=== PATIENT | female | born 1950 | race Hispanic/Latino ===

== ENCOUNTER 2017-08-26 05:59 | Day surgery (SDC) | payer MEDICARE ==
[2017-08-26] MEDS ORDERED: VERSED IV NR (06:00)
[2017-08-26] MEDS ORDERED: SUBLIMAZE IV ONE (06:00)
[2017-08-26] MEDS ORDERED: ANCEF/STERILE WATER 2 GM/20 ML IV NR (06:00)
[2017-08-26] MEDS ORDERED: PEPCID PO NR (06:00)
[2017-08-26] MEDS ORDERED: ADRENALIN ONE ×2 (06:58→07:09)
[2017-08-26] MEDS ORDERED: XYLOCAINE 1% 20 mL ONE (07:02)
[2017-08-26] MEDS ORDERED: DECADRON ONE (07:02)
[2017-08-26] MEDS ORDERED: MARCAINE-EPI/PF 0.5%-1:200,000 INFILTRATI ONE ×2 (07:02→07:03)
--- NOTE | 2017-08-26 07:19 | Anesthesia Consultation ---
Anesthesia Consult and Med Hx Date of service: 08/26/17 - Airway Anesthetic Teeth Evaluation: Dentures ROM Head & Neck: Adequate Mental/Hyoid Distance: Adequate Mallampati Class: Class II Intubation Access Assessment: Probably Good - Pulmonary Exam CTA: Yes - Cardiac Exam Cardiac Exam: RRR - Pre-Operative Health Status ASA Pre-Surgery Classification: ASA2 Proposed Anesthetic Plan: General Nerve Block: IS - Pulmonary Hx Smoking: No Hx Pneumonia: Yes (06/2017 , CXR NOW CLEAR) Hx Sleep Apnea: No ([facility] PRE SCREEN HIGH RISK) - Cardiovascular System Hx Hypertension: Yes (X 10 YRS) Hx Heart Murmur: Yes (CAUSES NO PROBLEMS) - Endocrine Hx Hypothyroidism: Yes (ON MEDS) - Hematic Hx Anemia: Yes - Other Systems Hx Cancer: No
--- NOTE | 2017-08-26 07:19 | Anesthesia Day of Surgery ---
Anesthesia Day of Surgery - Day of Surgery Patient Examined: Yes Patient H&P Reviewed: Yes Patient is NPO: Yes Beta Blockers: Yes
[2017-08-26] MEDS: NACL 0.9% 1000 ML 1,000 ML IV SCH ×2 (07:20→10:50)
[2017-08-26] MEDS ORDERED: XYLOCAINE MPF 2% ONE (07:21)
[2017-08-26] MEDS ORDERED: DIPRIVAN 10 MG/ML IV ONE (07:21)
[2017-08-26] MEDS ORDERED: SUBLIMAZE ONE (07:21)
[2017-08-26] MEDS ORDERED: QUELICIN ONE (07:21)
[2017-08-26] MEDS ORDERED: NEO SYNEPHRINE/NS Syringe(OR USE) IV ONE (08:00)
[2017-08-26] MEDS ORDERED: ADRENALIN IV ONE (08:28)
[2017-08-26] MEDS ORDERED: NACL 0.9% IR ONE ×2 (08:28)
[2017-08-26] MEDS ORDERED: ePHEDrine SULFATE ONE (08:31)
[2017-08-26] MEDS ORDERED: NACL 0.9% 1000 ML 1,000 ML ONE (09:30)
--- NOTE | 2017-08-26 09:36 | Short Stay Summary ---
Short Stay Documentation Date of service: 08/26/17 - History H&P: obtained from office - Allergies and Medications Current Medications: Allergies No Known Allergies Allergy (Verified 08/22/17 10:13) Home Medications Medication Instructions Recorded Confirmed Last Taken Type Bisoprolol/Hctz [Ziac 2.5-6.25] 1 each PO DAILY 08/22/17 08/26/17 08/26/17 04: 30 History Calcium Carbonate [Calcium] 1,200 mg PO DAILY 08/22/17 08/26/17 08/25/17 09:00 History Cyanocobalamin [Vitamin B-12] 1,000 mcg IM [id number] 08/22/17 08/26/17 08/19/17 09:00 History Doxazosin [Cardura] 4 mg PO QDAY 08/22/17 08/26/17 08/26/17 04:30 History Ergocalciferol [Vitamin D2] 50,000 unit PO QWEEK 08/22/17 08/26/17 08/19/17 09: 00 History FLUoxetine HCL [PROzac] 40 mg PO QDAY 08/22/17 08/26/17 08/25/17 09:00 History Ferrous Sulfate [Feosol] 325 mg PO BID 08/22/17 08/26/17 08/19/17 09:00 History Gabapentin [Neurontin] 600 mg PO BID 08/22/17 08/26/17 08/25/17 21:00 History Levothyroxine Sodium 137 mcg PO QAM 08/22/17 08/26/17 08/25/17 21:00 History [Levothyroxine] Multivit-Min/FA/Lycopen/Lutein 1 each PO DAILY 08/22/17 08/26/17 08/19/17 09:00 History [Centrum Silver Tablet] Active Medications Cefazolin Sodium (Ancef/Sterile Water 2 Gm/20 Ml) 2 gm IV PREOP NR Stop: 08/26/17 21:00 Famotidine (Pepcid) 20 mg PO PREOP NR Stop: 08/26/17 15:00 Last Admin: 08/26/17 07:00 Dose: 20 mg Sodium Chloride (Nacl 0.9% 1000 Ml) 1,000 mls @ 75 mls/hr IV DIRECT KATHLEEN Last Admin: 08/26/17 07:20 Dose: 75 mls/hr Midazolam HCl (Versed) 2 mg IV PREOP NR Stop: 08/26/17 23:59 Last Admin: 08/26/17 07:26 Dose: 2 mg - Brief post op/procedure progress note Date of procedure: 08/26/17 Pre-op diagnosis: persistent left shoulder pain, AC joint arthritis, rotator cuff tear Post-op diagnosis: other (left shoulder AC joint arthritis, partial rotator cuff tear, adhesive capsulitis, extensive subacromial bursitis) Procedure: left shoulder arthroscopy subacromial decompression, distal clavicle excision, debriedment of extensive subacromial bursitis, debriedment of partial rotator cuff tear, lysis of adhesions, manipulation under anesthesia, Anesthesia: GETA Findings: as above Surgeon: LUIS MIGUEL ROJAS Employee Relation Manager: JOSEPH FONG III Estimated blood loss: minimal Pathology: none Specimen disposition: to lab Condition: stable - Hospital course Hospital course: no periopeartive complications - Disposition Condition at discharge: Good Disposition: DC-01 TO HOME OR SELFCARE Short Stay Discharge Plan Follow up with: PRIMARY CARE, [Primary Care Provider] - 7 Days
--- NOTE | 2017-08-26 10:23 | Post Anesthesia Evaluation ---
- Post Anesthesia Evaluation Patient Participated: Yes Airway Patent: Yes Stable Respiratory Function: Yes Nausea/Vomiting: No Temp > 96.8F: Yes Pain Manageable: Yes Adequeate Hydration: Yes Anesthesia Complications: No Block Receding Appropriately: Not Applicable Patient on Ventilator: No
--- NOTE | 2017-08-26 11:15 | Operative Report ---
PREOPERATIVE DIAGNOSES: Persistent left shoulder pain, acromioclavicular joint arthritis, rotator cuff tear. POSTOPERATIVE DIAGNOSES: Persistent left shoulder pain, advanced acromioclavicular joint arthritic change with type 2 acromion with inferior spurs at distal clavicle and acromion causing severe impingement upon the rotator cuff. Extensive subacromial bursitis as well as adhesions, extensive intra-articular adhesions, partial thickness articular-sided rotator cuff tear involving less than 40% of the width of the supraspinatus tendon. Diffuse intra-articular inflammation with marked loss of range of motion/adhesive capsulitis. OPERATIVE PROCEDURE: Left shoulder arthroscopy, subacromial decompression, distal clavicle excision, lysis of adhesions, manipulation under anesthesia, debridement of extensive subacromial bursitis, debridement of partial thickness rotator cuff tear. SURGEON: Rony Lima MD METALLURGIST PROCESS: Oz Ayala III, MD. ANESTHESIA: General plus interscalene block to the operative left upper extremity. PREOPERATIVE ANTIBIOTICS: Ancef 2 grams IV within 1 hour of skin incision. DVT PROPHYLAXIS: Open toe, thigh high compression stockings and SCD pumps to bilateral lower extremities. OPERATIVE COMPLICATIONS: None. INDICATIONS: The patient is a 67-year-old female who has had persistent progressively worsening left shoulder pain with loss of range of motion with marked severe limitation of her normal activities of daily living. The patient failed to improve despite extensive nonoperative treatment. There is marked limitation of her normal activities of daily living. MRI scan was performed which was positive for acromioclavicular joint arthritic changes as well as a rotator cuff tear. The patient's MRI findings and diagnosis were discussed at length, after making sure the patient understood her diagnosis and all of her questions were answered, we then discussed treatment alternatives of surgical and nonsurgical including risks and benefits of both. After a long lengthy discussion, the patient opted to proceed with operative intervention. This will entail a left shoulder arthroscopy, subacromial decompression, distal clavicle excision, rotator cuff repair and surgery as indicated. The risk of which were discussed to include but not exclusive of infection, blood loss, nerve damage, loss of range of motion and persistent pain. Again, the patient understood, all of her questions were answered and she wished to proceed with operative intervention. OPERATIVE PROCEDURE: The patient was in seen the proper holding room area at which point informed consent was reviewed and appropriate left upper extremity was identified and then marked. Anesthesia then performed an interscalene block in the left lower extremity. After confirmation of adequate analgesia of the left upper extremity, the patient was then brought back to the operating room and placed supine on the standard operating room table with beachchair positioner already in place. At this juncture, general anesthesia was administered and an LMA tube was inserted. After confirmation of adequate general anesthesia, checking proper placement of LMA tube, we then made sure that all bony prominences were well padded. There were no wrinkles in the compression stockings on bilateral lower extremities and SCD pumps were applied to bilateral lower extremities. A pillow was placed beneath the posterior aspect of bilateral thighs, placed in slight flexion at the hips and knees making sure the popliteal fossa was free and clear. The patient was then sat in a beach chair position using the beach chair positioner, which was already in place and her head was secured in a nice neutral position. The well right arm was secured in neutral position at the patient's side with aid of the well-arm mayfield. The left upper extremity was then examined under anesthesia. The patient was seen to have marked loss of range of motion with forward flexion only to 140, abduction to 90, external rotation to 40 degrees, internal rotation of 40 degrees with no evidence of instability. Following examination under anesthesia, the left upper extremity was then prepped and draped in the usual sterile fashion. After prepping and draping, a timeout was called and the appropriate left upper extremity was identified which again had been marked in appropriate holding area. I began procedure by first making a standard posterior portal with #15 blade. Once the port was established, the cannula with a blunt trocar was inserted into the intra-articular aspect of the glenohumeral joint. This went without difficulty or damage to articular cartilage. Once in place, the arthroscopic camera placed in the anterior aspect of the shoulder. I established anterior portal by first inserting into 18 gauge spinal needle between subscap and biceps tendons under direct arthroscopic visualization, once confirmed to be in appropriate position, a 15 blade was then used to establish an anterior portal. Once the portal established, blunt trocar inserted via portal site. Following arthroscopic probe, began diagnostic arthroscopy in the anterior aspect of the shoulder joint where the patient was seen to have marked extensive adhesions throughout the intraarticular aspect of the shoulder joint. There was marked degenerative wear of the anterior and superior labrum. This was gently debrided using 4.0 meniscal shaver down to a nice smooth stable healthy remaining tissue. The remaining anterior superior labrum was probed and seen to be stable. The posterior labrum was seen to be intact and stable when probed. The biceps tendon was seen to be intact. Next, the shoulder in its normal relation. There was normal articular cartilage of the glenohumeral joint. There were no loose bodies in the axillary recess, although there were copious amounts of adhesions. The adhesions were gently debrided using 4.0 meniscal shaver and once completed, we were then able to visualize the subscapularis tendon which was seen to be intact and stable when probed as well as the middle glenohumeral ligament, which was seen to be stable and intact when probed. The rotator cuff showed there to be partial thickness tear of the supraspinatus tendon encompassing approximately 40% of width of the tendon. This was gently debrided using 4.0 meniscal shaver. Hemostasis was achieved with the Arthrocare ablation wand. Once completed, the arthroscopic pump was turned off to make sure there was good hemostasis. Once this was confirmed, a straight full suction of the glenohumeral joint using arthroscopic cannula. Following this, all arthroscopic instrumentation was removed from the glenohumeral joint and placed in the subacromial space. Once in the subacromial space, we saw there was severe extensive subacromial bursitis and adhesions. A third incision was made in the lateral aspect shoulder in line with distal clavicle away from the axillary nerve. Through this portal, we debrided the extensive subacromial bursitis and the diffuse adhesions. Using a 4.0 meniscal shaver, hemostasis was achieved with the Arthrocare ablation wand. Once completed, the arm was placed in full range of motion and saw there was severe impingement of the rotator cuff on undersurface of the acromion and distal clavicle. One could see in the rotator cuff ____ the inferior spur, the acromion had been digging into it. The soft tissue was then removed from the surface acromion using Arthrocare ablation wand and then using the 4.0 hooded barrel bur, we carried out a subacromial decompression in standard fashion from inferior and superior, posterior and anterior to make sure not to leave any residual anterior hook. The coracoacromial ligament was also seen to be markedly pathologic and thickening and contributing to impingement. Therefore, it was taken down. We turned our attention to the distal clavicle which was also seen to be arthritic and contributing to the impingement and therefore, using a 4.0 hooded barrel bur, we carried out a distal clavicle excision to a depth of approximately 6-8 mm. Once completed, the arthroscopic pump was turned off to make sure there was good hemostasis. Once the arthroscopic instrumentation was removed, a gentle manipulation under anesthesia was performed. Once completed, the patient seen to have forward flexion to 180, abduction to 180, external rotation of 60 degrees, internal rotation of 60 degrees. Following this, the arthroscopic camera was placed back in the subacromial space. The rotator cuff on the bursal side was inspected. There was seen to be no full thickness tearing. Hemostasis was achieved with Arthrocare ablation wand and once completed, the extraneous fluid suctioned from the subacromial space using the arthroscopic cannula. Then, the shoulder was placed a full range of motion under direct arthroscopic visualization and it was felt there was no further impingement of the rotator cuff upon anterior surface of the acromion or the distal clavicle. Following this, extraneous fluid suctioned from the subacromial space using arthroscopic cannula. Following this, all arthroscopic instrumentation was removed. The 3 portal sites were closed with 3-0 nylon in simple fashion. Adaptic, 4 x 4, ABD and paper tape, small abduction sling was applied. The patient was sat down from the beach chair to supine position, was awakened from general anesthesia without complications to the recovery room in stable condition. Standard postoperative orders were written. JOB# [id number] RANDAL/RAFA MULLEN
[2017-08-26 18:23] VITALS: BP 152/82
== END 2017-08-26 12:23 | disposition home or self-care (01) ==
LOC: OR 05:59
PROVIDERS: ATTEND Orthopaedic Surgery
DX: S46.012A Strain of muscle(s) and tendon(s) of the rotator cuff of left shoulder, initial encounter (principal); M75.02 Adhesive capsulitis of left shoulder; I10 Essential (primary) hypertension; E03.9 Hypothyroidism, unspecified; D64.9 Anemia, unspecified; E66.9 Obesity, unspecified; Z68.36 Body mass index [BMI] 36.0-36.9, adult; Z79.899 Other long term (current) drug therapy; Z87.01 Personal history of pneumonia (recurrent); X58.XXXA Exposure to other specified factors, initial encounter
CPT/HCPCS: 29823; A4217; J0171; J0330; J0690; J1100; J2250; J2370; J2704; J3010; J7030; L1830

== ENCOUNTER 2019-08-10 13:10 | Emergency (ER) | payer MEDICARE | END 2019-08-10 13:13 | disposition left against medical advice (07) | LOC: ED 13:10 | DX: K62.89 Other specified diseases of anus and rectum (principal); Z53.21 Procedure and treatment not carried out due to patient leaving prior to being seen by health care provider ==